=== PATIENT | female | born 1995 | race African-American/Black ===

== ENCOUNTER 2016-10-07 08:19 | Emergency (ER) | payer OTHER ==
[~2016-10-07] VITALS: Ht 165.1 cm; Wt 64.4 kg
[~2016-10-07 08:19] MED LIST: ACTICIN 5% CREA60 G1 TOP; CELEXA20 MG PO; DIFLUCAN150 MG PO; IBUPROFEN 800800 M1 PO; MACROBID 100 M100 M1 PO; MEDROLDOSEPACK PO; ONDANSETRON HCL4 M2 PO; PHENERGAN 25 MG25 M1 PO; PRENATAL VITAM1 EACH PO; TRAMADOL 50 MG50 MG PO; ZOFRAN ODT4 MG PO
[2016-10-07 08:23] VITALS: BP 117/69
[2016-10-07] MEDS ORDERED: SUDAFED 12 HR120 MG PO (08:56)
[2016-10-07] MEDS ORDERED: FLONASE 0.05%50 MCG NASAL (08:56)
== END 2016-10-07 09:06 | disposition home or self-care (01) ==
LOC: ER 08:19
DX: J06.9 Acute upper respiratory infection, unspecified (principal); F10.99 Alcohol use, unspecified with unspecified alcohol-induced disorder

== ENCOUNTER 2019-01-06 15:22 | Emergency (ER) | payer OTHER ==
[~2019-01-06] VITALS: Ht 160 cm; Wt 54.4 kg
[~2019-01-06 15:22] MED LIST changes: +FLONASE 0.05%50 MCG NASAL; +SUDAFED 12 HR120 MG PO
[2019-01-06 15:25] VITALS: BP 122/68
== END 2019-01-06 16:25 | disposition home or self-care (01) ==
LOC: ER 15:22
DX: H61.23 Impacted cerumen, bilateral (principal)

== ENCOUNTER 2019-01-29 12:46 | Emergency (ER) | payer OTHER ==
[~2019-01-29] VITALS: Ht 165.1 cm; Wt 60.8 kg
[2019-01-29 12:50] VITALS: BP 126/73
[2019-01-29 13:25] LABS: URINE BILIRUBIN NEGATIVE (Negative); URINE BLOOD NEGATIVE (Negative); URINE CLARITY CLEAR; URINE COLOR YELLOW; URINE GLUCOSE-RANDOM* NEGATIVE (Negative); URINE KETONES NEGATIVE (Negative); URINE LEUKOCYTES-REFLEX 2+ (Negative); URINE NITRITE-REFLEX NEGATIVE (Negative); URINE PROTEIN (DIPSTICK) NEGATIVE (Negative); URINE SPECIFIC GRAVITY 1.015 (1.005-1.035)
[2019-01-29 13:36] LABS: AMORPHOUS URATES Few /LPF (None Seen); CASTS None Seen /LPF (None Seen); SQUAMOUS >10 Many /LPF (0-3); URINE RBC None Seen /HPF (0-2)
[2019-01-29 13:37] LABS: BACTERIA-REFLEX 1-9 Few /HPF (None Seen); URINE WBC-REFLEX 0-5 Rare /HPF (0-5)
[2019-01-29] MEDS ORDERED: FLAGYL500 M1 PO (14:26)
[2019-01-29] MEDS ORDERED: KEFLEX500 M1 PO (14:26)
[2019-01-29] MEDS ORDERED: MUPIROCIN15 GM TOP (14:27)
== END 2019-01-29 14:37 | disposition home or self-care (01) ==
LOC: ER 12:46
PROVIDERS: Physician Assistant
DX: N76.0 Acute vaginitis (principal); B96.89 Other specified bacterial agents as the cause of diseases classified elsewhere; N39.0 Urinary tract infection, site not specified; L73.9 Follicular disorder, unspecified